=== PATIENT | female | born 1960 | race African-American/Black ===

== ENCOUNTER 2016-09-06 11:11 | Emergency (ER) | payer OTHER ==
[2016-09-06 11:18] VITALS: BP 124/76; PULSE 69; RESP 18; O2SAT 96
--- NOTE | 2016-09-06 12:04 | EDPHY ---
H & P Smoking Status: Never smoked Time Seen by Provider: 09/06/16 11:34 HPI/ROS: CHIEF COMPLAINT: Left foot injury HISTORY OF PRESENT ILLNESS: 56-year-old female presents to the emergency department with injury to her left foot. The patient was in [place] 3 days ago and was at a grocery store and when she picked up a watermelon, multiple watermelon fell on top of her left foot. She was wearing sandals at the time. She is able to bear weight. Denies any other trauma or injury. ROS: Denies pain in the left ankle, left knee. Denies abrasions. (Gitamarino Martha Lott) Past Medical/Surgical History: Hypertension (GitamarinoMartha Lott) Social History: (Karen Cruzkarlie Lott) Physical Exam: On examination there is no obvious swelling. No abrasions. No ecchymosis. The dorsal aspect of the left foot is tender to palpate especially along the 1st and 2nd metatarsals. No rotational deformities noted. Normal sensation to light touch with normal 2 point discrimination. Full range of motion of her toes. Full range of motion of her left ankle. Her left ankle is stable. The toes do not appear to be injured. (Karen Cruzkarlie Lott) Constitutional: Initial Vital Signs Heart Rate 69 09/06/16 11:14 Respiratory Rate 18 09/06/16 11:14 Blood Pressure 124/76 H 09/06/16 11:14 O2 Sat (%) 96 09/06/16 11:14 O2 Delivery Mode Room Air Allergies/Adverse Reactions: No Known Allergies Allergy (Verified 09/06/16 11:13) Home Medications: Medication Instructions Recorded Losartan Potassium [Cozaar] 0 mg PO 12/03/12 Sertraline HCl [Zoloft 20mg/ml 50 mg PO 12/03/12 oral liquid] Potassium Chloride [Klor-Con M10] 10 meq PO 09/06/16 MDM/Departure - [facility] Imaging: I viewed and interpreted images myself - [facility] Diagnostics: X-rays of the left foot reveal no fractures. This is reviewed by myself the PAC system. Radiology interpretation to follow. (NancyMartha Lott) Imaging Results: Imaging Impressions Foot X-Ray 09/06/16 11:20 Impression: Negative. No acute fracture. Procedures: Patient was placed in a postop shoe and examined post application in good placement with normal FISHER TROT LINE. (Martha Cruz) ED Course/Re-evaluation: 56-year-old female presents to the emergency department left foot injury. X- rays reveal no fractures. Patient was placed in a postop shoe. Patient was given orthopedic referral. (Martha Cruz) I did not see this patient while she was in the emergency department. However her care was discussed with the PA while the patient was in the department. I agree with treatment plan and management (Ricardo Austin) - Depart Disposition: Home, Routine, Self-Care Clinical Impression: Contusion of left foot Qualifiers: Encounter type: initial encounter Qualified Code(s): S90.32XA - Contusion of left foot, initial encounter Condition: Good Instructions: Foot Contusion (ED) Additional Instructions: Postop shoe for comfort and support. Ibuprofen 600 mg every 8 hours as needed for pain. Weightbear as tolerated. Referrals: Boris Montiel MD [Medical Doctor] - 5-7 days, call for appt. (Orthopedic surgeon on-call)
== END 2016-09-06 12:29 | disposition home or self-care (01) ==
DX: S90.32XA Contusion of left foot, initial encounter (principal); I10 Essential (primary) hypertension; W20.8XXA Other cause of strike by thrown, projected or falling object, initial encounter; Y92.512 Supermarket, store or market as the place of occurrence of the external cause; Y99.8 Other external cause status; Y93.89 Activity, other specified
CPT/HCPCS: L3260

== ENCOUNTER 2016-09-12 03:35 | Emergency (ER) | payer OTHER ==
--- NOTE | 2016-09-12 04:12 | EDPHY ---
H & P Stated Complaint: R wrist pain/swelling x2 days; suspects possible injury 09/03 HPI/ROS: HPI CHIEF COMPLAINT: Right wrist pain since Tuesday or 48 hours. HISTORY OF PRESENT ILLNESS: This patient very pleasant 56-year-old female she presents emergency room with 48 hours right wrist pain and swelling. She is unclear if she had any injury. She states on Tuesday she had I watermelon box fall on her left foot sustaining a left foot injury and she is unclear if she fell on her low right wrist or pushed the boxes away on her right wrist. She states the throbbing pain mainly swelling over the dorsum of the right wrist, no swelling on the palmar side. 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 She denies fever. She decided come the emergency room at 4:30 a.m. in the morning due to ongoing throbbing pain. Past Medical History: Osteoporosis, hypertension, pre diabetes Past Surgical History: Denies recent surgical history Social History: Denies daily use of drugs alcohol tobacco products Family History: Noncontributory ROS REVIEW OF SYSTEMS: A comprehensive 10 point review of systems is otherwise negative aside from elements mentioned in the history of present illness. Exam Constitutional triage nursing summary reviewed, vital signs reviewed, awake/ alert. Eyes normal conjunctivae and sclera, EOMI, PERRLA. HENT normal inspection, atraumatic, moist mucus membranes, no epistaxis, neck supple/ no meningismus, no raccoon eyes. Respiratory clear to auscultation bilaterally, normal breath sounds, no respiratory distress, no wheezing. Cardiovascular rate normal, regular rhythm, no murmur, no edema, distal pulses normal. Gastrointestinal soft, non-tender, no rebound, no guarding, normal bowel sounds, no distension, no pulsatile mass. Genitourinary no CVA tenderness. Musculoskeletal right wrist: Swelling over the dorsum of the right wrist, full range of motion of the wrist, good pulse, good cap refill, good manager of internal strength. Tenderness with flexion-extension of the wrist, and tender palpation over dorsum of the wrist with swelling. No significant redness or warmth. No crepitus. no midline vertebral tenderness, full range of motion, no calf swelling, no tenderness of extremities, no meningismus, good pulses, neurovascularly intact. Skin pink, warm, & dry, no rash, skin atraumatic. Neurologic awake, alert and oriented x 3, AAOx3, moves all 4 extremities equally, motor intact, sensory intact, CN II-XII intact, normal cerebellar, normal vision, normal speech. Psychiatric normal mood/affect. Heme/Lymph/Immune no lymphadenopathy. Differential Diagnosis: Includes but is not limited to in a particular order wrist sprain, wrist contusion, bony contusion, tendinitis, arthritis, gout, pseudogout septic joint Medical Decision Making: Plan for this patient x-ray right wrist rule bony abnormality there is no significant warmth or redness on exam. Doubt septic joint as she does have full range of motion. And she really only tender and swollen over the dorsum of the wrist. Will place in a Velcro wrist splint for comfort [place] for pain control. Will refer to Orthopedics if she does not see improvement in next 3-5 days. She also understands return emergency room if the swelling gets worse pain gets worse develops a fever she has any questions or concerns. Re-evaluation: ED x-ray right wrist four view: Image interpreted by myself. I do not appreciate acute fracture. 0453AM: This patient's x-rays reviewed on a appreciate any fracture. Patient be placed in a Velcro wrist splint for comfort. She understands to ice it. Take ibuprofen Tylenol alternating every 4-6 hours for pain control. [place] for having severe pain however she understands has Tylenol in it will take additional Tylenol with. Return emergency room if there is any worsening symptoms questions or concerns including fever worsening swelling. Follow up with Orthopedics if not better in 3-5 days. Source: Patient - Personal History Current Tetanus/Diphtheria Vaccine: Yes Current Tetanus Diphtheria and Acellular Pertussis (TDAP): Yes - Medical/Surgical History Hx Asthma: No Hx Chronic Respiratory Disease: No Hx Diabetes: No Hx Cardiac Disease: No Hx Renal Disease: No Hx Cirrhosis: No Hx Alcoholism: No Hx HIV/AIDS: No Hx Splenectomy or Spleen Trauma: No Other PMH: HTN, pre-diabetes, preosteoporosis - Social History Smoking Status: Never smoked Constitutional: Initial Vital Signs Temperature (C) 36.7 C 09/12/16 03:39 Heart Rate 71 09/12/16 03:39 Respiratory Rate 16 09/12/16 03:39 Blood Pressure 142/78 H 09/12/16 03:39 O2 Sat (%) 96 09/12/16 03:39 O2 Delivery Mode Room Air,Transtracheal Allergies/Adverse Reactions: No Known Allergies Allergy (Verified 09/06/16 11:13) Home Medications: Medication Instructions Recorded Losartan Potassium [Cozaar] 0 mg PO 12/03/12 Sertraline HCl [Zoloft 20mg/ml 50 mg PO 12/03/12 oral liquid] Potassium Chloride [Klor-Con M10] 10 meq PO 09/06/16 Hydrocodone/APAP 5/325 [[place] 1 - 2 tab PO Q4H PRN #10 tab 09/12/16 5/325 (*)] Multi-Vitamin Daily 09/12/16 Medical Decision Making - Data Points Medications Given: Discontinued Medications Acetaminophen (Tylenol) 1,000 mg PO EDNOW ONE Stop: 09/12/16 04:24 Last Admin: 09/12/16 04:32 Dose: 1,000 mg Departure - Departure Disposition: Home, Routine, Self-Care Clinical Impression: Wrist pain, acute Qualifiers: Laterality: right Qualified Code(s): M25.531 - Pain in right wrist Condition: Good Instructions: Wrist Injury (ED), Wrist Sprain (ED), Swollen Joint (ED), Arthritis (ED) Additional Instructions: 1. Ice your wrist 2. I would alternate Tylenol and Motrin or ibuprofen every 4-6 hours for pain control. Use [place] few having severe pain however this has Tylenol in it. Do not double up on Tylenol. 3. Stay in her wrist splint for the next week for comfort. If it still continues to bother you follow up with Orthopedics. If it severe pain return to the emergency room. Referrals: NATHALIE PACHECO [Other] - As per Instructions Eliceo Pablo MD [Medical Doctor] - As per Instructions Prescriptions: Hydrocodone/APAP 5/325 [[place] 5/325 (*)] 1 - 2 tab PO Q4H PRN #10 tab PRN Reason: Pain, Moderate
[2016-09-12 04:13] VITALS: RESP 16; TEMP 98.1
[2016-09-12] MEDS ORDERED: ACETAMINOPHEN 500 MG TAB PO ONE (04:23)
[2016-09-12 05:24] VITALS: BP 138/80; PULSE 66; O2SAT 97
== END 2016-09-12 05:25 | disposition home or self-care (01) ==
DX: M25.531 Pain in right wrist (principal); I10 Essential (primary) hypertension
CPT/HCPCS: L3908

== ENCOUNTER → 2016-09-29 | Outpatient (CLI) | payer OTHER | LOC: FIMAGING 18:45 | PROVIDERS: ATTEND Orthopaedic Surgery Hand Surgery | DX: M25.531 Pain in right wrist (principal); L02.511 Cutaneous abscess of right hand; M65.841 Other synovitis and tenosynovitis, right hand ==

== ENCOUNTER 2017-12-09 22:30 | Emergency (ER) | payer OTHER ==
--- NOTE | 2017-12-09 22:43 | EDPHY ---
H & P Stated Complaint: Dizziness, nausea, dehydration, recent wirst surg Time Seen by Provider: 12/09/17 22:43 HPI/ROS: HPI CHIEF COMPLAINT: Lightheadedness, nausea HISTORY OF PRESENT ILLNESS: This is a very pleasant 57-year-old female, otherwise healthy, she 3 days ago she had right wrist surgery, she has subsequently been placed in a splint. She was prescribed oxycodone. She did not taking pain medicine today. She was at dinner this evening and had a alcohol cocktail which she does not normally do and she started feeling lightheaded and nauseous after this. She thought she needs to eat something so she had a appetite or new meal. However this did not really make her feel better. She decided come the emergency room. Since being in emergency room she is feeling better. She denies any chest pain or palpitations denies shortness of breath, denies pleuritic pain, denies focal weakness, denies numbness or tingling. Denies headache. Her lightheadedness or feeling like she was going to pass out had nausea has subsequently resolved. Currently this time in the emergency room she appears well has stable vital signs in no acute distress. Past Medical History: No significant medical history Past Surgical History: Recent right wrist surgery 3 days ago. Social History: Denies drugs alcohol tobacco. Did have 1 drink this evening. Family History: Noncontributory ROS REVIEW OF SYSTEMS: 10 Systems were reviewed and negative with the exception of the elements mentioned in the history of present illness. Exam Constitutional appears well nontoxic triage nursing summary reviewed, vital signs reviewed, awake/alert. Vital signs stable at triage. Noted to be slightly tachycardic 105. Eyes normal conjunctivae and sclera, EOMI, PERRLA. HENT normal inspection, atraumatic, moist mucus membranes, no epistaxis, neck supple/ no meningismus, no raccoon eyes. Respiratory clear to auscultation bilaterally, normal breath sounds, no respiratory distress, no wheezing. Cardiovascular tachycardic 105, regular rhythm, no murmur, no edema, distal pulses normal. Gastrointestinal soft, non-tender, no rebound, no guarding, normal bowel sounds, no distension, no pulsatile mass. Genitourinary no CVA tenderness. Musculoskeletal no midline vertebral tenderness, full range of motion, no calf swelling, no tenderness of extremities, no meningismus, good pulses, neurovascularly intact. Skin pink, warm, & dry, no rash, skin atraumatic. Neurologic awake, alert and oriented x 3, AAOx3, moves all 4 extremities equally, motor intact, sensory intact, CN II-XII intact, normal cerebellar, normal vision, normal speech. Psychiatric normal mood/affect. Heme/Lymph/Immune no lymphadenopathy. Differential Diagnosis: Includes but is not limited to in a particular order dehydration, electrolyte disturbance, adverse effect from alcohol, cardiac arrhythmia, doubt acute coronary syndrome, doubt pulmonary embolism. Given history and physical. Medical Decision Making: Plan for this patient IV establishment IV fluid bolus 1 L normal saline, Zofran as needed for nausea, check EKG, electrolytes, troponin, and re-evaluate. Re-evaluation: EKG interpretation by me on record in [facility] system. Impression time of EKG 2305, this is sinus rhythm rate of 97 without any signs of cardiac arrhythmia there is no signs of acute ischemia no ST elevation or ST depression or T-wave abnormalities. No prolonged intervals. Unremarkable nonischemic EKG. 1225AM: Patient re-evaluated this time she is resting comfortably eager for discharge. She states she feels much better after IV fluids. She denies any chest pain or shortness of breath or pleuritic pain. 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 The patient's EKG is unremarkable for ischemia. Troponin noted to be negative. Electrolytes are normal. She denies dizziness, headache, lightheadedness, palpitations, chest pain or shortness of breath. She would like to go home. I feel comfortable allowing her to go home. Recommend she stays well hydrated drink lots of fluids. Over the next 24-48 hours if she develops lightheadedness, dizziness, syncope, chest pain, shortness of breath she needs return emergency room she understands this. Source: Patient - Personal History Current Tetanus Diphtheria and Acellular Pertussis (TDAP): No - Medical/Surgical History Hx Asthma: No Hx Chronic Respiratory Disease: No Hx Diabetes: No Hx Cardiac Disease: No Hx Renal Disease: No Hx Cirrhosis: No Hx Alcoholism: No Hx HIV/AIDS: No Hx Splenectomy or Spleen Trauma: No Other PMH: HTN, pre-diabetes, preosteoporosis, R wirst surg nov 2017 - Social History Smoking Status: Never smoked Constitutional: Initial Vital Signs Temperature (C) 37.0 C 12/09/17 22:37 Heart Rate 104 H 12/09/17 22:37 Respiratory Rate 18 12/09/17 22:37 Blood Pressure 122/83 H 12/09/17 22:37 O2 Sat (%) 97 12/09/17 22:37 O2 Delivery Mode Room Air Allergies/Adverse Reactions: No Known Allergies Allergy (Verified 12/09/17 22:37) Home Medications: Medication Instructions Recorded Losartan Potassium [Cozaar] 0 mg PO 12/03/12 Sertraline HCl [Zoloft 20mg/ml 50 mg PO 12/03/12 oral liquid] Potassium Chloride [Klor-Con M10] 10 meq PO 09/06/16 Hydrocodone/APAP 5/325 [[place] 1 - 2 tab PO Q4H PRN #10 tab 09/12/16 5/325 (*)] Multi-Vitamin Daily 09/12/16 Medical Decision Making - Data Points Laboratory Results: Laboratory Results 12/09/17 22:58 12/09/17 22:58 12/09/17 12/09/17 12/09/17 23:01 22:58 22:58 WBC 7.90 10^3/uL 10^3/uL (3.80-9.50) RBC 4.94 10^6/uL 10^6/uL (4.18-5.33) Hgb 13.9 g/dL g/dL (12.6-16.3) Hct 41.4 % % (38.0-47.0) MCV 83.8 fL fL (81.5-99.8) MCH 28.1 pg pg (27.9-34.1) MCHC 33.6 g/dL g/dL (32.4-36.7) RDW 13.0 % % (11.5-15.2) Plt Count 191 10^3/uL 10^3/uL (150-400) MPV 10.7 fL fL (8.7-11.7) Neut % (Auto) 48.5 % % (39.3-74.2) Lymph % (Auto) 41.6 % % (15.0-45.0) [place] % (Auto) 6.8 % % (4.5-13.0) Eos % (Auto) 2.4 % % (0.6-7.6) Baso % (Auto) 0.4 % % (0.3-1.7) Nucleat RBC Rel Count 0.0 % % (0.0-0.2) Absolute Neuts (auto) 3.83 10^3/uL 10^3/uL (1.70-6.50) Absolute Lymphs (auto) 3.29 10^3/uL H 10^3/uL (1.00-3.00) Absolute Monos (auto) 0.54 10^3/uL 10^3/uL (0.30-0.80) Absolute Eos (auto) 0.19 10^3/uL 10^3/uL (0.03-0.40) Absolute Basos (auto) 0.03 10^3/uL 10^3/uL (0.02-0.10) Absolute Nucleated RBC 0.00 10^3/uL 10^3/uL (0-0.01) Immature Gran % 0.3 % % (0.0-1.1) Immature Gran # 0.02 10^3/uL 10^3/uL (0.00-0.10) Sodium 140 mEq/L mEq/L (135-145) Potassium 4.1 mEq/L mEq/L (3.3-5.0) Chloride 105 mEq/L mEq/L (97-110) Carbon Dioxide 22 mEq/l mEq/l (22-31) Anion Gap 13 mEq/L mEq/L (8-16) BUN 19 mg/dL mg/dL (7-23) Creatinine 0.8 mg/dL mg/dL (0.6-1.0) Estimated GFR > 60 Glucose 133 mg/dL H mg/dL (70-100) Calcium 9.5 mg/dL mg/dL (8.5-10.4) Magnesium 2.1 mg/dL mg/dL (1.6-2.3) Total Bilirubin 0.2 mg/dL mg/dL (0.1-1.4) Conjugated Bilirubin 0.1 mg/dL mg/dL (0.0-0.5) Unconjugated Bilirubin 0.1 mg/dL mg/dL (0.0-1.1) AST 46 IU/L IU/L (14-46) ALT 52 IU/L IU/L (9-52) Alkaline Phosphatase 103 IU/L IU/L (38-126) POC Troponin I 0.00 ng/mL ng/mL (0.00-0.08) NT-Pro-B Natriuret Pep 20 pg/mL pg/mL (0-125) Total Protein 7.4 g/dL g/dL (6.3-8.2) Albumin 4.4 g/dL g/dL (3.5-5.0) Medications Given: Discontinued Medications Sodium Chloride (Ns) 1,000 mls @ 0 mls/hr IV EDNOW ONE; Wide Open PRN Reason: Protocol Stop: 12/09/17 22:52 Last Admin: 12/09/17 22:54 Dose: 1,000 mls Ibuprofen (Motrin) 800 mg PO EDNOW ONE Stop: 12/09/17 23:49 Last Admin: 12/09/17 23:51 Dose: Not Given Ondansetron HCl (Zofran) 4 mg IVP EDNOW ONE Stop: 12/09/17 22:53 Last Admin: 12/09/17 22:54 Dose: 4 mg Point of Care Test Results: Chemistry 12/09/17 23:01 POC Troponin I 0.00 ng/mL ng/mL (0.00-0.08) Departure - Departure Disposition: Home, Routine, Self-Care Clinical Impression: Lightheaded Condition: Good Instructions: Near Syncope (ED), Lightheadedness (ED) Additional Instructions: 1. Drink lots of fluids stay well-hydrated. 2. Return emergency room if develops chest pain, shortness of breath, syncope, dizziness. Referrals: NATHALIE PACHECO [Other] - As per Instructions
[2017-12-09] MEDS ORDERED: NS 1,000 ML IV ONE (22:51)
[2017-12-09] MEDS ORDERED: ONDANSETRON 4 MG/2 ML VIAL IVP ONE (22:52)
[2017-12-09 23:08] LABS: PLATELET COUNT 191 10^3/uL (150-400)
[2017-12-09 23:41] VITALS: BP 123/68
[2017-12-09] MEDS ORDERED: IBUPROFEN 800 MG TAB PO ONE (23:48)
--- NOTE | 2017-12-11 06:59 | CPEKG ---
Test Reason : cp Blood Pressure : / mmHG Vent. Rate : 097 BPM Atrial Rate : 098 BPM P-R Int : 137 ms QRS Dur : 079 ms QT Int : 358 ms P-R-T Axes : 061 030 051 degrees QTc Int : 455 ms Sinus rhythm Probable left atrial enlargement Confirmed by Denys Gaitan ([id number]) on 12/11/2017 6:58:42 AM Referred By: Confirmed By:Denys Gaitan
== END 2017-12-10 00:37 | disposition home or self-care (01) ==
DX: R42 Dizziness and giddiness (principal); E86.0 Dehydration; R11.0 Nausea; Z98.890 Other specified postprocedural states
CPT/HCPCS: 84484-PO; 96374; J2405

== ENCOUNTER 2018-05-16 21:28 | Emergency (ER) | payer OTHER ==
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
[2018-05-16] MEDS ORDERED: AMOXICILLIN/CLAVULANATE POT 875/125 MG TAB PO ONE (22:46)
[2018-05-16 23:01] VITALS: BP 118/70
== END 2018-05-16 23:00 | disposition home or self-care (01) ==
PROC: 0H9CXZZ Drainage of Left Upper Arm Skin, External Approach (ICD-10-PCS; principal; 2018-05-16)
DX: L02.414 Cutaneous abscess of left upper limb (principal); S41.152A Open bite of left upper arm, initial encounter; I10 Essential (primary) hypertension; F41.8 Other specified anxiety disorders; W50.3XXA Accidental bite by another person, initial encounter; Y92.9 Unspecified place or not applicable; Y99.9 Unspecified external cause status; Y93.9 Activity, unspecified

== ENCOUNTER 2018-05-18 21:19 | Emergency (ER) | payer OTHER ==
[2018-05-18 21:24] VITALS: BP 125/81
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
== END 2018-05-18 21:59 | disposition home or self-care (01) ==
DX: Z48.00 Encounter for change or removal of nonsurgical wound dressing (principal); W50.3XXD Accidental bite by another person, subsequent encounter

== ENCOUNTER → 2018-09-11 | Outpatient (CLI) | payer OTHER | LOC: BMCIMAGING 16:01 ==